=== PATIENT | male | born 1945 | race Caucasian/White ===

== ENCOUNTER 2017-01-28 19:23 | Emergency (ER) | payer BC ==
[~2017-01-28] VITALS: Ht 177.8 cm; Wt 90.7 kg
[2017-01-28 20:22] LABS: MCHC 34.7 G/DL (30.0-36.0); MCV 86.7 FL (86-99); MEAN PLAT.VOLUME 10.7 uM^3 (9.0-12.4); PLATELET COUNT 317 K/uL (156-360); RBC DIS.WIDTH-CV 13.4 % (11.8-14.6); RED BLOOD COUNT 4.96 M/uL (4.00-5.50); WHITE BLOOD COUNT 8.3 K/uL (4.1-10.2)
[2017-01-28 20:33] LABS: CHLORIDE 105 mEq/L (99-109); SODIUM 139 mEq/L (136-147)
[2017-01-28 20:34] LABS: GLUCOSE 112 mg/dL (70-99)
[2017-01-28 20:36] LABS: ANION GAP 11 MEQ/L (2-14)
[2017-01-28 20:38] LABS: GFR ESTIMATE (CALCULATED) > 59 mL/min/
[2017-01-28 20:39] LABS: UREA NITROGEN (BUN) 14 mg/dL (9-23)
[2017-01-28 21:31] LABS: ADD MIUA? YES; BILIRUBIN NEGATIVE; BLOOD MODERATE; GLUCOSE (STRIP) NEGATIVE; KETONES NEGATIVE; LEUKOCYTES NEGATIVE; NITRITE NEGATIVE; PROTEIN (STRIP) 30; SPECIFIC GRAVITY 1.005 (1.000-1.030); UROBILINOGEN 0.2 MG/DL (0.2-1.0)
[2017-01-28 21:36] LABS: COLOR RED ((YELLOW))
[2017-01-28 22:00] LABS: RED BLOOD CELLS 30-40 /HPF (0-5); WHITE BLOOD CELLS 0-5 /HPF (0-5)
[2017-01-28 22:01] LABS: BACTERIA 1+ /HPF; EPITHELIAL CELLS NONE SEEN /HPF; MUCUS NONE SEEN /LPF; UCUL ADDED? NO
[2017-01-28] MEDS ORDERED: KEFLEX500 MG PO (22:11)
[2017-01-28 22:20] VITALS: BP 124/72
== END 2017-01-28 22:23 | disposition home or self-care (01) ==
LOC: EME 19:23
PROVIDERS: Emergency Medicine
DX: R33.9 Retention of urine, unspecified (principal); E78.5 Hyperlipidemia, unspecified; Z87.891 Personal history of nicotine dependence
CPT/HCPCS: 80048; 81003; 85027; 87086; 99281; 99283